=== PATIENT | male | born 1945 | race African-American/Black ===

== ENCOUNTER 2019-04-23 15:25 | Emergency (ER) | payer SELFPAY ==
[~2019-04-23] VITALS: Ht 185.4 cm; Wt 90.7 kg
[~2019-04-23 15:25] MED LIST: BENA10TA84 PO; BUPROPRION PO; HYDR-2551 PO; INSUPOW; METF-370 PO; METOPROLOL PO
[2019-04-23 16:31] LABS: Basophils # (auto) 0 uL; Basophils % (auto) 0.5 % (0.0-2.0); Eosinophils # (auto) 0.1 uL; Hematocrit 36.9 % (41.0-53.0); Hemoglobin 12.4 g/dL (13.5-17.5); Lymphocytes # (auto) 1.4 uL; Lymphocytes % (auto) 17.3 % (10.0-50.0); Mean Corpuscular Hemoglobin 29.8 pg (28.0-32.0); Mean Corpuscular Hgb Conc. 33.6 g/dL (32.0-36.0); Mean Corpuscular Volume 88.6 fL (80.0-100.0); Monocytes # (auto) 0.6 uL; Neutrophils # (auto) 5.9 uL; Neutrophils % (auto) 74.2 % (37.0-80.0); Platelet Count (auto) 227 10^3/uL (140-450); Red Blood Cells 4.16 10^6/uL (4.5-5.90); Red Cell Distribution Width 15.8 % (11.8-14.3)
[2019-04-23 16:46] LABS: Alanine Aminotransferase 21 U/L (16-61); Albumin 3.1 g/dL (3.4-5.0); Anion Gap 5 (5-15); Blood Urea Nitrogen 19 mg/dL (7-18); Calcium 8.2 mg/dL (8.5-10.1); Carbon Dioxide 26 mmol/L (21-32); Chloride 112 mmol/L (98-107); Glucose 208 mg/dL (74-106); Potassium 3.8 mmol/L (3.5-5.1); Sodium 143 mmol/L (136-145)
[2019-04-23 16:51] LABS: Alkaline Phosphatase 54 U/L (45-117); Aspartate Aminotransferase 12 U/L (15-37); Bilirubin, Total 0.3 mg/dL (0.2-1.0); GFR African American 77 mL/min; GFR Non-African American 63 mL/min; Total Protein 6.3 g/dL (6.4-8.2)
[2019-04-23 21:52] VITALS: BP 165/82
[2019-04-23] MEDS ORDERED: HYDROcodone-ACET 7.5/325MG TAB PO ONE (23:45)
== END 2019-04-24 00:52 | disposition home or self-care (01) ==
LOC: EDBD 15:25 → ER 15:25
DX: R07.89 Other chest pain (principal); F32.9 Major depressive disorder, single episode, unspecified; R45.851 Suicidal ideations; I11.0 Hypertensive heart disease with heart failure; I50.9 Heart failure, unspecified; E11.9 Type 2 diabetes mellitus without complications; Z86.73 Personal history of transient ischemic attack (TIA), and cerebral infarction without residual deficits; Z90.49 Acquired absence of other specified parts of digestive tract; Z79.4 Long term (current) use of insulin
CPT/HCPCS: 36415; 71046; 71250; 74176; 80053; 84484; 85025; 93005